=== PATIENT | male | born 1955 | race Caucasian/White ===

== ENCOUNTER 2018-11-05 15:43 | Emergency (ER) | payer MEDICARE | END 2018-11-05 16:25 | disposition home or self-care (01) | LOC: EDH 15:43 | DX: B35.3 Tinea pedis (principal); E78.5 Hyperlipidemia, unspecified; Z72.0 Tobacco use; Z85.038 Personal history of other malignant neoplasm of large intestine ==

== ENCOUNTER 2019-03-31 08:21 | Emergency (ER) | payer MEDICARE | END 2019-03-31 09:24 | disposition home or self-care (01) | LOC: EDH 08:21 | DX: H92.02 Otalgia, left ear (principal); I10 Essential (primary) hypertension; E78.5 Hyperlipidemia, unspecified; Z85.038 Personal history of other malignant neoplasm of large intestine; Z72.0 Tobacco use ==

== ENCOUNTER 2022-03-22 07:08 | Emergency (ER) | payer MEDICARE ==
[~2022-03-22] VITALS: Ht 172.7 cm; Wt 68.9 kg
[2022-03-22 07:13] VITALS: BP 166/97
[2022-03-22] MEDS ORDERED: CETI10TA57 PO (08:29)
[2022-03-22] MEDS ORDERED: FLUT16H NASAL (08:29)
== END 2022-03-22 08:47 | disposition home or self-care (01) ==
LOC: EDH 07:08
DX: J32.9 Chronic sinusitis, unspecified (principal); R03.0 Elevated blood-pressure reading, without diagnosis of hypertension; Z20.822 Contact with and (suspected) exposure to COVID-19; K21.9 Gastro-esophageal reflux disease without esophagitis; E78.00 Pure hypercholesterolemia, unspecified; Z59.00 Homelessness unspecified
CPT/HCPCS: 99283; 87635; 87804 ×2; C9803

== ENCOUNTER 2024-07-08 14:00 | Emergency (ER) | payer MEDICARE ==
[~2024-07-08] VITALS: Ht 172.7 cm; Wt 61.2 kg
[~2024-07-08 14:00] MED LIST: CETI10TA57 PO; FLUT16H NASAL
--- NOTE | 2024-07-08 14:36 | ERN ---
General Chief Complaint: Back Pain or Injury Stated Complaint: BACK PAIN Time Seen by MD: 14:08 History of Present Illness Initial Comments Mr. Denney is a 69-year-old male with past medical history of: Hypercholesteremia, hypertension, GERD came to ER with complaints of mid back pain post fall last week radiating to upper back, stabbing pain, that is worse when he stands up. He denies chest pain or shortness of breath or palpitations or dizziness or abdominal pain. He did not his hit his head when he fell, no LOC, not on blood thinners. Allergies: Coded Allergies: No Known Drug Allergies (Unverified Allergy, Unknown, 11/05/18) Home Meds Active Scripts Amoxicillin/Potassium Clav (Amox Tr-K Clv 875-125 mg Tab) 875 Mg-125 Mg Tablet, 1 TAB PO BID for 7 Days, #14 TAB 0 Refills Prov:NICHELLE GRUBER MD 07/08/24 Lidocaine (Lidocaine Pain Relief) 4 % Adh..patch, 1 PATCH TP DAILY for 10 Days, #10 PATCH 0 Refills Prov:NICHELLE GRUBER MD 07/08/24 Gabapentin (Gabapentin) 100 Mg Capsule, 100 MG PO TID for 10 Days, #30 CAP Prov:NICHELLE GRUBER MD 07/08/24 Hydrocodone/Acetaminophen (Hydrocodon-Acetaminophen 5-325) 5 Mg-325 Mg Tablet, 1 TAB PO QIDP PRN for pain for 5 Days, #20 TAB 0 Refills Prov:PADDY GALEANO DO 07/08/24 Fluticasone Propionate (Flonase Nasal [place]) 50 Mcg/[place], 1 SPRAY NASAL BID, #1 INHALER 0 Refills Prov:MICHELLE ADDISON MD 03/22/22 Cetirizine HCl (Cetirizine HCl) 10 Mg Tablet, 10 MG PO DAILY, #15 TAB 0 Refills Prov:MICHELLE ADDISON MD 03/22/22 Past Medical History Past Medical History: GERD, High Cholesterol, Hypertension Past Surgical History: None ROS Dictation Constitutional: No appetite loss, No fevers, chills , No night sweats, No weakness, fatigue Eye: No vision change, No redness, pain or discharge ENT: No hearing loss, ear pain or discharge, No nose bleeds, No sore throat, Neck: No swelling. pain or stiffness Respiratory: No cough, shortness of breath, wheezing Cardiovascular: No chest pain,, palpitations, dyspnea, No edema Gastrointestinal: No abdominal pain, No nausea, vomiting, No diarrhea, constipation Genitourinary: No painful urination, No blood in urine, No urinary incontinence, No frequency or urgency Musculoskeletal: Mid back pain, right upper back pain, stiffness in right shoulder, no swelling Neurological: No numbness, tingling, No weakness, tremors or seizures Physical Exam Physical Exam Dictation General: Alert & Oriented, No acute distress. EENT: No conjunctival redness or discharge noted Tympanic membranes are clear, Normal hearing, Oral mucosa is moist, No pharyngeal erythema, No nasal discharge, No oral lesions. Neck: Non-tender, No jugular vein distention, No lymphadenopathy, No thyromegaly, Supple. Respiratory: Lungs are clear to auscultation, Respirations are non-labored, Breath sounds are equal, No chest wall tenderness, _. Cardiovascular: Normal rate, Normal rhythm, No murmur, Good pulses equal in all extremities, Normal peripheral perfusion, No edema. Gastrointestinal: Soft, Non-tender, Non-distended, Normal bowel sounds, No organomegaly, _. Musculoskeletal: mild right upper back tenderness, Normal range of motion, Normal strength, No swelling, No deformity, Normal gait. Integumentary: Warm, Dry, [place], Intact, No pallor, No rash. Neurologic: Alert, Oriented x4, Normal sensory, No focal defects Psychiatric: Cooperative, Appropriate mood & affect, Normal judgement, Non- suicidal. Results EKG/XRAY/US/CT/MRI X-RAY Comment PATIENT: SARAH DENNEY MR#: [id number] : 1955 SEX: M AGE: 69 LOCATION: [facility] ORDER 144 STATUS: REG ER REPORT#: [id number] SERVICE 1440 REASON: fall ORDERING PHYSICIAN: NICHELLE GRUBER MD PROCEDURE: SHOL 2V RT - SHOULDER COMP 2+VWS RT SHOULDER COMP 2+VWS RT REASON: fall TECHNIQUE: 2 views were obtained. FINDINGS: There is no evidence of fracture or dislocation. There is no joint effusion. The soft tissues appear unremarkable. There is no evidence of a radiopaque foreign body. IMPRESSION: No acute findings. DICTATED BY: VA SU MD DATE: 07/08/24 1531 ELECTRONICALLY SIGNED BY: VA SU MD DATE: 07/08/[address] Scan Comment PATIENT: SARAH DENNEY MR#: [id number] : 1955 SEX: M AGE: 69 LOCATION: [facility] ORDER 27 STATUS: REG ER REPORT#: [id number] SERVICE 25 REASON: FALL ORDERING PHYSICIAN: NICHELLE GRUBER MD PROCEDURE: T SPINE WO - CT THORACIC SPINE W/O CONTRAST CT THORACIC SPINE W/O CONTRAST REASON: FALL COMPARISON: None TECHNIQUE: Axial images are obtained from lower cervical spine through the upper lumbar spine. Sagittal and coronal reconstruction images were then performed. FINDINGS: There is a vertebral plana of T9. There is vacuum disc phenomenon suggesting this is old. There is no retropulsed fragment. There is mild superior endplate compression deformity of T12 and moderate superior endplate compression deformity of L1, both indeterminate in age, no retropulsed fragment. Remaining thoracic vertebral bodies appear normal. The spinal canal appears widely patent throughout. Soft tissues appear unremarkable. IMPRESSION: 1. Vertebral plana at T9 which is probably old since there is vacuum disc phenomena. 2. Mild superior endplate compression of T12 and moderate superior plate compression of L1, indeterminate in age. 3. Spinal canal widely patent, there are no retropulsed fragments. DICTATED BY: VA SU MD DATE: 07/08/24 150 ELECTRONICALLY SIGNED BY: VA SU MD DATE: 07/08/24 150 PATIENT: SARAH DENNEY MR#: [id number] : 1955 SEX: M AGE: 69 LOCATION: [facility] ORDER 27 STATUS: REG ER [facility] REPORT#: [id number] SERVICE 25 REASON: FALL ORDERING PHYSICIAN: NICHELLE GRUBER MD PROCEDURE: L SPIN WO - CT LUMBAR SPINE W/O CONTRAST CT LUMBAR SPINE W/O CONTRAST REASON: FALL COMPARISON: None TECHNIQUE: Images are obtained from mid body T11 through the sacrum in the axial plane. Sagittal and coronal reconstruction images were performed. FINDINGS: There is mild superior endplate compression deformity of T12 with moderate superior endplate compression of L1. These are indeterminate in age. There are no retropulsed fragment. Lumbar vertebral bodies appear otherwise unremarkable. Interspace heights are preserved. Alignment is normal. Axial images show ligament flavum and facet hypertrophic changes. These result in mild spinal stenosis at the L4-5 level, AP diameter 6 to 7 mm. There is moderate to marked spinal stenosis at L3-4, on a degenerative basis, AP diameter 5 to 6 mm. Remaining interspaces are widely patent. There are no focal osseous lesions. IMPRESSION: 1. Compression deformity superior endplate of T12 and L1, indeterminate in age but no retropulsed fragment. 2. Ligamentum flavum and facet hypertrophic changes with bulging annulus causing moderate spinal stenosis at L3-4 and mild spinal stenosis at L4-5. DICTATED BY: VA SU MD DATE: 07/08/241512 ELECTRONICALLY SIGNED BY: VA SU MD DATE: 07/08/241517 [facility] The differential diagnosis entertained at this time includes: Muscle strain, rib fracture, rotator cuff tear, tendinitis A full comprehensive workup will be performed to identify the underlying problem. The patient will be monitored closely throughout the emergency department stay. The disposition will depend on the workup results and frequent re-evaluations MDM: Rationale: Tests considered and ordered secondary to shared decision making include: CBC, CMP, Urinalysis,, ECG and radiology Previous outside records reviewed: Old ER visits. Risk of complication and/or morbidity or mortality of patient management: None Medications-Per medication reconciliation Need for hospitalization: Patient does meet criteria for hospitalization. Need for emergency major/minor surgery: No There are no social concerns with this patient. Prescription drug management Prescriptions will include symptomatic care Patient's prior external medical records from other ER visits were reviewed by me as indicated. Prior testing and results from previous visits were reviewed. Prior tests were taken into account with medical decision making and resource utilization, independent historian/historians were used to obtain complete medical history. I independently interpreted the test that were performed, results were reviewed by me and considered findings on radiology if ordered. Medical management and examination interpretation discussions were had by me with other qualified healthcare professionals as indicated for the patient's care. ED Course Orders Procedure Category Date Status Time Ct Thoracic Spine W/O CT 07/08/24 Resulted Contrast 14:26 Ct Lumbar Spine W/O CT 07/08/24 Resulted Contrast 14:26 Ketorolac PHA 07/08/24 Complete Tromethamine 15mg/Ml 14:30 Orphenadrine Citrate PHA 07/08/24 Complete (Norflex) 14:30 Shoulder Comp 2+Vws Rt RAD 07/08/24 Resulted 14:40 Hydrocodone/Apap PHA 07/08/24 Complete 5/325 ([place] 5/325mg) 16:00 Current Medications Medications (Trade) Dose Ordered Sig/Lex Route PRN Reason Start Time Stop Time Status Last Admin Dose Admin Acetaminophen/ Hydrocodone Bitart (NORco 5/325MG) 1 tab ONCE ONCE PO 07/08/24 16:00 07/08/24 15:45 DC Ketorolac Tromethamine (toRADol) 15 mg ONCE ONCE IM 07/08/24 14:30 07/08/24 14:31 DC 07/08/24 14:51 Orphenadrine Citrate (Norflex) 60 mg ONCE ONCE IM 07/08/24 14:30 07/08/24 14:31 DC 07/08/24 14:50 Vital Signs Date Time Temp Pulse Resp B/P (MAP) Pulse Ox O2 Delivery O2 Flow Rate FiO2 07/08/24 14:43 98.1 83 18 152/78 98 Room Air* 0 21 07/08/24 14:12 98.1 3 20 166/90 99 Room Air DX & DISP Disposition: Discharge Departure Impression: Primary Impression: Compression fracture of spine Critical Time: 30 minutes Condition: Stable Scripts Amoxicillin/Potassium Clav (Amox Tr-K Clv 875-125 mg Tab) 875 Mg-125 Mg Tablet 1 TAB PO BID for 7 Days, #14 TAB 0 Refills Prov: NICHELLE GRUBER MD 07/08/24 Lidocaine (Lidocaine Pain Relief) 4 % Adh..patch 1 PATCH TP DAILY for 10 Days, #10 PATCH 0 Refills Prov: NICHELLE GRUBER MD 07/08/24 Gabapentin (Gabapentin) 100 Mg Capsule 100 MG PO TID for 10 Days, #30 CAP Prov: NICHELLE GRUBER MD 07/08/24 Hydrocodone/Acetaminophen (Hydrocodon-Acetaminophen 5-325) 5 Mg-325 Mg Tablet 1 TAB PO QIDP PRN for pain for 5 Days, #20 TAB 0 Refills Prov: PADDY GALEANO DO 07/08/24 Additional Instructions: Patient has been informed of all the diagnostic tests and the imaging conducted during the today's visit to the emergency room and has verbalized understanding of the results I have personally reviewed and interpreted all diagnostic exams performed here in the ER today as well as the vital signs documented by the nursing staff. The patient is now being discharged to home and should follow up with the primary care physician or the specialist as directed by the ER staff. Follow-up with primary care provider in 1 to 2 days. Take medications as directed here in the emergency room. Okay to continue home medications unless otherwise discussed during your visit in the emergency room today. Return to your nearest emergency room if symptoms worsen or if there is no improvement. C all 911 if you need immediate assistance. Take Tylenol or Motrin [id number] as needed and if no contraindications are present. Increase oral hydration. Referrals: SELF,REFERRAL (PCP) SIMRAN WALDROP MD ATTESTATION BY PHYSICIAN I have seen and examined the patient. I reviewed the documentation, medical decision making, and treatment plan as noted by the resident provider above. I agree with the findings and plan of care. Paddy Galeano NIHITHA MD Jul 08, 2024 14:35 PADDY GALEANO DO Jul 08, 2024 15:46
[2024-07-08] MEDS: ORPHENADRINE 60MG/2ML IM ONE (14:50)
[2024-07-08] MEDS: ketOROlac 15MG/ML VIAL (15MG/ML) IM ONE (14:51)
--- NOTE | 2024-07-08 15:06 | HMCIMG ---
CT THORACIC SPINE W/O CONTRAST REASON: FALL COMPARISON: None TECHNIQUE: Axial images are obtained from lower cervical spine through the upper lumbar spine. Sagittal and coronal reconstruction images were then performed. FINDINGS: There is a vertebral plana of T9. There is vacuum disc phenomenon suggesting this is old. There is no retropulsed fragment. There is mild superior endplate compression deformity of T12 and moderate superior endplate compression deformity of L1, both indeterminate in age, no retropulsed fragment. Remaining thoracic vertebral bodies appear normal. The spinal canal appears widely patent throughout. Soft tissues appear unremarkable. IMPRESSION: 1. Vertebral plana at T9 which is probably old since there is vacuum disc phenomena. 2. Mild superior endplate compression of T12 and moderate superior plate compression of L1, indeterminate in age. 3. Spinal canal widely patent, there are no retropulsed fragments.
--- NOTE | 2024-07-08 15:18 | HMCIMG ---
CT LUMBAR SPINE W/O CONTRAST REASON: FALL COMPARISON: None TECHNIQUE: Images are obtained from mid body T11 through the sacrum in the axial plane. Sagittal and coronal reconstruction images were performed. FINDINGS: There is mild superior endplate compression deformity of T12 with moderate superior endplate compression of L1. These are indeterminate in age. There are no retropulsed fragment. Lumbar vertebral bodies appear otherwise unremarkable. Interspace heights are preserved. Alignment is normal. Axial images show ligament flavum and facet hypertrophic changes. These result in mild spinal stenosis at the L4-5 level, AP diameter 6 to 7 mm. There is moderate to marked spinal stenosis at L3-4, on a degenerative basis, AP diameter 5 to 6 mm. Remaining interspaces are widely patent. There are no focal osseous lesions. IMPRESSION: 1. Compression deformity superior endplate of T12 and L1, indeterminate in age but no retropulsed fragment. 2. Ligamentum flavum and facet hypertrophic changes with bulging annulus causing moderate spinal stenosis at L3-4 and mild spinal stenosis at L4-5.
--- NOTE | 2024-07-08 15:35 | HMCIMG ---
SHOULDER COMP 2+VWS RT REASON: fall TECHNIQUE: 2 views were obtained. FINDINGS: There is no evidence of fracture or dislocation. There is no joint effusion. The soft tissues appear unremarkable. There is no evidence of a radiopaque foreign body. IMPRESSION: No acute findings.
[2024-07-08] MEDS ORDERED: HYDR-4060 PO (15:45)
[2024-07-08] MEDS ORDERED: AMOX1TAB16 PO (15:54)
[2024-07-08] MEDS ORDERED: GABA-529 PO (15:54)
[2024-07-08] MEDS ORDERED: LIDO1ADH71 TP (15:54)
[2024-07-08] MEDS ORDERED: HYDROcodone/APAP 5/325 1 TAB TABLET PO ONE (16:00)
[2024-07-08 16:07] VITALS: BP 143/75; PULSE 79; RESP 18; TEMP 98.1; O2SAT 99
== END 2024-07-08 16:10 | disposition home or self-care (01) ==
LOC: EDH 14:00
DX: S22.080A Wedge compression fracture of T11-T12 vertebra, initial encounter for closed fracture (principal); S32.010A Wedge compression fracture of first lumbar vertebra, initial encounter for closed fracture; E78.00 Pure hypercholesterolemia, unspecified; I10 Essential (primary) hypertension; K21.9 Gastro-esophageal reflux disease without esophagitis; Z79.899 Other long term (current) drug therapy; W18.39XA Other fall on same level, initial encounter; Y93.89 Activity, other specified; Y92.89 Other specified places as the place of occurrence of the external cause; Y99.8 Other external cause status
CPT/HCPCS: 99285; 72131; 73030; 72128; 96372 ×2; J1885; J2360

== ENCOUNTER 2024-07-21 10:41 | Emergency (ER) | payer MEDICARE ==
[~2024-07-21 10:41] MED LIST changes: +AMOX1TAB16 PO; +GABA-529 PO; +HYDR-4060 PO; +LIDO1ADH71 TP
[2024-07-21] MEDS ORDERED: morPHINE 4 MG SYG IVP ONE (12:00)
[2024-07-21] MEDS ORDERED: ondanSETRON 4MG INJ IVP ONE (12:00)
[2024-07-22] MEDS ORDERED: CEPH500B PO (09:13)
== END 2024-07-21 12:17 | disposition left against medical advice (07) ==
LOC: EDH 10:41
DX: M54.9 Dorsalgia, unspecified (principal); Z53.21 Procedure and treatment not carried out due to patient leaving prior to being seen by health care provider

== ENCOUNTER 2024-07-22 08:45 | Emergency (ER) | payer MEDICARE ==
[~2024-07-22] VITALS: Ht 172.7 cm; Wt 71.2 kg
[2024-07-22] MEDS ORDERED: CEPH500B PO (09:13)
--- NOTE | 2024-07-22 09:16 | ERN ---
General Chief Complaint: Back Injury Stated Complaint: BACK PAIN Time Seen by MD: 08:51 History of Present Illness Initial Comments 69-year-old male had a fall two or three weeks goes onto his bottom. He has a compression fracture T9. He was here, he received a [place] and pain control, I briefly resolve the pain but he ran out of medication. He did follow up with Dr. Corea as an outpatient, but Dr. Corea does not accept his insurance. He is requesting course of antibiotics since he occasionally gets kidney infections. He was requesting pain medicine and referrals to neurosurgery. Allergies: Coded Allergies: No Known Drug Allergies (Unverified Allergy, Unknown, 11/05/18) Home Meds Active Scripts Amoxicillin/Potassium Clav (Amox Tr-K Clv 875-125 mg Tab) 875 Mg-125 Mg Tablet, 1 TAB PO BID for 7 Days, #14 TAB 0 Refills Prov:NICHELLE GRUBER MD 07/08/24 Lidocaine (Lidocaine Pain Relief) 4 % Adh..patch, 1 PATCH TP DAILY for 10 Days, #10 PATCH 0 Refills Prov:NICHELLE GRUBER MD 07/08/24 Gabapentin (Gabapentin) 100 Mg Capsule, 100 MG PO TID for 10 Days, #30 CAP Prov:NICHELLE GRUBER MD 07/08/24 Hydrocodone/Acetaminophen (Hydrocodon-Acetaminophen 5-325) 5 Mg-325 Mg Tablet, 1 TAB PO QIDP PRN for pain for 5 Days, #20 TAB 0 Refills Prov:MAGDI COYLE DO 07/08/24 Fluticasone Propionate (Flonase Nasal [place]) 50 Mcg/[place], 1 SPRAY NASAL BID, #1 INHALER 0 Refills Prov:MICHELLE ADDISON MD 03/22/22 Cetirizine HCl (Cetirizine HCl) 10 Mg Tablet, 10 MG PO DAILY, #15 TAB 0 Refills Prov:MICHELLE ADDISON MD 03/22/22 Past Medical History Past Medical History: GERD, High Cholesterol, Hypertension Past Surgical History: None ROS Dictation CONSTITUTIONAL: No chills, no fever, no weakness, no diaphoresis, no malaise. HEAD/FACE: No signs of trauma. EENT: No eye pain, no blurred vision, no tearing, no double vision, no ear pain, no ear discharge, no nose pain, no nasal congestion, no throat pain, no throat swelling, no mouth pain. RESPIRATORY: No cough, no orthopnea, no SOB, no stridor, no wheezing. CARDIOVASCULAR: No chest pain, no edema, no palpitations, no syncope. GASTROINTESTINAL/ABDOMINAL: No abdominal pain, no constipation, no diarrhea, no nausea, no vomiting. GENITOURINARY: No abnormal discharge, no dysuria, no frequent urination, no hematuria. No complaints of pain in the genitals. MUSCULOSKELETAL: Back pain INTEGUMENTARY: No change in color, no change in hair/nails, no dryness, no lesion, no lumps, no rash. NEUROLOGICAL/PSYCH: No anxiety, not depressed, no emotional problem, no headache, no numbness, no pre-existing deficit, no history of seizures, no tremors, no weakness. HEMATOLOGIC/LYMPHATIC: Not anemic, no history of blood clots, no apparent bleeding, no bruising, glands not swollen. All Systems Negative, Except as Noted. Physical Exam Physical Exam Dictation VITAL SIGNS: Reviewed. GENERAL APPEARANCE: Alert, oriented x3, no acute distress HEAD AND FACE: Non-traumatic. EYES: PERRL, pink conjunctivas, eyelid no trauma, anterior chamber clear. EARS: Pinnas intact and no signs of trauma or erythema. Ear canals clear and no discharge. TMs no erythema. NOSE: No discharge, no bleeding. OROPHARYNX: Mouth normal, teeth no caries, tongue pink. Pharynx clear, no erythema. Tonsils no exudates, no abscesses noted. Mucous membrane moist. NECK: Supple, non-tender, no thyromegaly, no masses, no JVD, no bruits. BREAST: Deferred. CHEST: No tenderness, no crepitus, no paradoxical movement, no retractions. LUNGS: Clear, well-ventilated, symmetric, no rales, no wheezing, no rhonchi, no stridor, good breath sounds bilaterally. HEART: Regular rate, regular rhythm, no murmur, no gallops. VASCULAR: No peripheral edema. ABDOMEN: Soft, positive bowel sounds, nondistended, no guarding, nontender, no rebound, no masses no hepatomegaly, no splenomegaly, no Garza's sign, no hernias. RECTAL: Deferred. GENITAL: Deferred. NEUROLOGICAL: Normal speech, gross motor function intact, gross sensory function intact. MUSCULOSKELETAL: Neck nontender, full range of motion, back nontender, full range of motion. Midline back tenderness around T9 consistent with the injury EXTREMITIES: Nontender, full range of motion. SKIN: Color pink, dry, no turgor, no rash, no lacerations, no abrasions, no contusions. LYMPHATICS: Deferred. MDM CC: Mid back pain status post fall Historian: Patient Comorbidities: Known T9 compression fracture, gastritis Historian: Patient Limitations by social determinants of health: None Differential diagnosis: Pain due to compression fracture Vital signs stable No labs or imaging indicated Patient was no neurovascular deficit, he does have midline tenderness. I did review the imaging, there is a CT scan of the thorax done which shows a compression fracture less than 25%. He is neurovascularly intact, we will DC [facility] pain control and recommend neurosurgery follow up. We will give him referrals to different surgeons in the area. Patient was also requesting antibiotics because he thinks he may have a kidney infection, I will give him some Keflex. ED Course Orders Procedure Category Date Status Time Ketorolac 60mg/2ml PHA 07/22/24 In Process (Toradol 60mg/2ml) 09:30 Hydrocodone/Apap PHA 07/22/24 In Process 5/325 ([place] 5/325mg) 09:30 Current Medications Medications (Trade) Dose Ordered Sig/Lex Route PRN Reason Start Time Stop Time Status Last Admin Dose Admin Acetaminophen/ Hydrocodone Bitart ([place] 5/325MG) 1 tab ONCE ONCE PO 07/22/24 09:30 07/22/24 09:31 Ketorolac Tromethamine (toRADol 60MG/ 2ML) 15 mg ONCE ONCE IM 07/22/24 09:30 07/22/24 09:31 Vital Signs Date Time Temp Pulse Resp B/P (MAP) Pulse Ox O2 Delivery O2 Flow Rate FiO2 07/22/24 08:55 97.9 86 18 99 Room Air* 0 21 07/22/24 08:46 97.9 86 20 151/96 99 DX & DISP Disposition: Discharge Departure Impression: Primary Impression: Compression fracture of spine Condition: Stable Scripts Cephalexin Monohydrate (Keflex) 500 Mg Cap 1 CAP PO TID for 10 Days, #30 CAP 0 Refills Prov: MAGDI COYLE DO 07/22/24 Hydrocodone/Acetaminophen (Hydrocodon-Acetaminophen 5-325) 5 Mg-325 Mg Tablet 1 TAB PO QIDP PRN for pain for 5 Days, #30 TAB 0 Refills Prov: MAGDI COYLE DO 07/22/24 Additional Instructions: You have a compression fracture at T9. I have sent hydrocodone tabs to the pharmacy. You can take this up to 4 times a day as needed. I recommend you try an [id number] NSAIDs such as ibuprofen or naproxen. As we discussed, this may irritate your stomach. You can also try 4% lidocaine patches, Voltaren gel, or capsaicin gel. These are all [id number] medications. You will need to follow up with the neurosurgeon. I have provided a few referrals here. Please return to the emergency department if you have any concerns. Referrals: SELF,REFERRAL (PCP) FRANK MUJICA MD, MADHAVAN A MD STEPHENS, BRADLEY H MD WORTH, RYAN E DO Jul 22, 2024 09:16
[2024-07-22] MEDS: HYDROcodone/APAP 5/325 1 TAB TABLET PO ONE (09:19)
[2024-07-22] MEDS: ketOROlac 60 MG VIAL (30MG/ML) IM ONE (09:20)
[2024-07-22 09:43] VITALS: BP 145/90; PULSE 80; RESP 18; TEMP 97.9; O2SAT 99
== END 2024-07-22 09:39 | disposition home or self-care (01) ==
LOC: EDH 08:45
DX: S22.070A Wedge compression fracture of T9-T10 vertebra, initial encounter for closed fracture (principal); E78.00 Pure hypercholesterolemia, unspecified; I10 Essential (primary) hypertension; K21.9 Gastro-esophageal reflux disease without esophagitis; Z79.899 Other long term (current) drug therapy; W18.39XA Other fall on same level, initial encounter; Y93.89 Activity, other specified; Y92.89 Other specified places as the place of occurrence of the external cause; Y99.8 Other external cause status
CPT/HCPCS: 99283; 96372; J1885

== ENCOUNTER 2025-01-05 16:21 | Emergency (ER) | payer MEDICARE ==
[~2025-01-05] VITALS: Ht 160 cm; Wt 68.0 kg
[~2025-01-05 16:21] MED LIST changes: +CEPH500B PO; +OMEP20CA12 PO
[2025-01-05] MEDS ORDERED: PHARMACY COMMUNICATION MISC STA (17:09)
[2025-01-05] MEDS ORDERED: MAG/AL/SIMETH 30 ML+LIDO2% VISC+DIPHEN 75MG 30ML PO PRN (17:30)
[2025-01-05] MEDS ORDERED: COMPOUND PO MISCELLANEOUS 1 EACH MISC MISC PRN (17:30)
[2025-01-05 17:33] LABS: RAPID GROUP A STREP negative (NEGATIVE)
[2025-01-05 17:39] LABS: SARS-CoV-2, RNA, NAAT NEGATIVE SARS CoV-2 (NEGATIVE)
[2025-01-05 17:44] LABS: INFLUENZA TYPE A Negative For Type A (NEGATIVE); INFLUENZA TYPE B Negative For Type B (NEGATIVE)
[2025-01-05] MEDS ORDERED: OFLO5DRO AS (18:14)
[2025-01-05] MEDS ORDERED: MAGIC PO (18:14)
--- NOTE | 2025-01-05 18:14 | ERN ---
ED Note History of Present Illness Stated Complaint: SORE THROAT Chief Complaint: Sore Throat Time Seen by MD: 16:58 Time Seen by Midlevel: 17:02 Dictation: 69-year-old male complaining of left ear pain and mild pain. Patient states it has been going on for one week. Denies any fever, nausea or vomiting. Denies any chest pain or discomfort. Allergies: Coded Allergies: No Known Drug Allergies (Unverified Allergy, Unknown, 11/05/18) Home Meds Active Scripts Omeprazole (Omeprazole) 20 Mg Capsule.dr, 1 CAP PO DAILY for 30 Days, #30 CAP 0 Refills Prov:DORETHA JONES MD 08/06/24 Gabapentin (Gabapentin) 100 Mg Capsule, 1 CAP PO BID for 3 Days, #6 CAP 0 Refills Prov:DORETHA JONES MD 08/06/24 Cephalexin Monohydrate (Keflex) 500 Mg Cap, 1 CAP PO TID for 10 Days, #30 CAP 0 Refills Prov:MAGDI COYLE DO 07/22/24 Hydrocodone/Acetaminophen (Hydrocodon-Acetaminophen 5-325) 5 Mg-325 Mg Tablet, 1 TAB PO QIDP PRN for pain for 5 Days, #30 TAB 0 Refills Prov:MAGDI COYLE DO 07/22/24 Amoxicillin/Potassium Clav (Amox Tr-K Clv 875-125 mg Tab) 875 Mg-125 Mg Tablet, 1 TAB PO BID for 7 Days, #14 TAB 0 Refills Prov:NICHELLE GRUBER MD 07/08/24 Lidocaine (Lidocaine Pain Relief) 4 % Adh..patch, 1 PATCH TP DAILY for 10 Days, #10 PATCH 0 Refills Prov:NICHELLE GRUBER MD 07/08/24 Gabapentin (Gabapentin) 100 Mg Capsule, 100 MG PO TID for 10 Days, #30 CAP Prov:NICHELLE GRUBER MD 07/08/24 Hydrocodone/Acetaminophen (Hydrocodon-Acetaminophen 5-325) 5 Mg-325 Mg Tablet, 1 TAB PO QIDP PRN for pain for 5 Days, #20 TAB 0 Refills Prov:MAGDI COYLE DO 07/08/24 Fluticasone Propionate (Flonase Nasal [place]) 50 Mcg/[place], 1 SPRAY NASAL BID, #1 INHALER 0 Refills Prov:MICHELLE ADDISON MD 03/22/22 Cetirizine HCl (Cetirizine HCl) 10 Mg Tablet, 10 MG PO DAILY, #15 TAB 0 Refills Prov:MICHELLE ADDISON MD 03/22/22 Past Medical History Past Medical History: High Cholesterol, Hypertension Surgical History: None Review of System Dictation Constitutional: Negative for fever,chills, and weight loss Eyes: Negative for injury, pain,redness, and discharge ENT: Complaining of left ear pain and mouth Cardiovascular: Negative for chest pain, palpitations, and edema Respiratory: Negative for shortness of breath, cough, and wheezing, Abdomen/GI: Negative for abdominal pain, nausea, vomiting, diarrhea, and constipation Back: Negative for injury and pain : Negative for injury, bleeding and discharge MS/Extremity: Negative for injury and deformity Skin: Negative for rash, and discoloration Neuro: Negative for headache, weakness, numbness, tingling, and seizure Psych: Negative for suicide ideation, homicidal ideation, and hallucinations Review of Systems: was completed Initial Vital Sign VS Vital Signs Date Time Temp Pulse Resp B/P (MAP) Pulse Ox O2 Delivery O2 Flow Rate FiO2 01/05/25 16:51 97.3 20 18 125/79 98 Physical Exam Dictation General: awake, alert, NAD Head/Face: Normocephalic, atraumatic Eyes: PERRL, EOMI, vision at baseline ENT: No mild erythema noted in the left ear canal, no drainage. Mouth shows no thrush, ulcers, lesions Neck: Trachea midline, supple, no nuchal rigidity Cardiovascular: RRR, normal S1/S2, No MRGs, no JVD Respiratory: CTAB, no respiratory distress, No rales or wheezes Abdomen: Soft, non-tender, non-distended, normal bowel sounds, no guarding or rebound. Skin: Warm, dry, normal turgor, no rash MS/Extremity: Pulses equal, no cyanosis, neurovascular intact, FROM Neuro: COAx4, GCS 15, strength 5/5, CN 2-12 intact, normal cerebellar exam, normal gait, Psych: Normal behavior, mood, and affect normal Results (Laboratory/Radiology) Laboratory/Radiology Laboratory Tests Test 01/05/25 17:10 Influenza Type A Antigen Negative For Type A Influenza Type B Antigen Negative For Type B SARS-CoV-2, RNA, NAAT NEGATIVE SARS CoV-2 Group A Streptococcus Rapid negative (NEGATIVE) Labs Reviewed?: Yes ED Course ED Course Orders Procedure Category Date Status Time Rapid (Group A Strep) LAB 01/05/25 Complete 16:57 Covid Rna Naat LAB 01/05/25 Complete 16:57 Influenza Type A & B, LAB 01/05/25 Complete Rapid 16:57 Pharmacy PHA 01/05/25 Complete Communication 17:09 Mag/Alum/Simeth 30ml PHA 01/05/25 In Process (Maalox Plus 30ml) 17:30 Compound Po Misc PHA 01/05/25 In Process (Compound Po Misc) 17:30 Current Medications Medications (Trade) Dose Ordered Sig/Lex Route PRN Reason Start Time Stop Time Status Last Admin Dose Admin Al Hydroxide/Mg Hydroxide/ Lidocaine HCl/ Diphenhydramine HCl TAKE (5-10)ML SWISH ... Q6H PRN PO SORE THROAT 01/05/25 17:30 02/04/25 17:29 Pharmacy Profile Note (Pharmacy Communication) 1 each ONCE STAT MISC 01/05/25 17:09 01/05/25 17:16 DC Vital Signs Date Time Temp Pulse Resp B/P (MAP) Pulse Ox O2 Delivery O2 Flow Rate FiO2 01/05/25 16:51 97.3 20 18 125/79 98 Medical Decision Making MDM MDM: 69-year-old male complaining of left ear pain and mild pain. Patient states it has been going on for one week. Denies any fever, nausea or vomiting. Denies any chest pain or discomfort. Patient states he uses Listerine feet very frequent every day. Educated patient this is might be causing his mouth soreness because it contains alcohol and it can be very irritating to the skin. Educated to stop using that. We will give prescription for the left otitis externa him to follow up with PCP. Differential diagnosis: Otitis media, otitis externa, pharyngitis, thrush Rationale: Tests considered and ordered secondary to shared decision making include: Previous outside records reviewed: Old ER visits. Risk of complication and/or morbidity or mortality of patient management: None Medications-Per medication reconciliation Need for hospitalization: Patient does not meet criteria for hospitalization. Need for emergency major/minor surgery: No There are no social concerns with this patient. Prescription drug management Prescriptions will include symptomatic care Patient's prior external medical records from other ER visits were reviewed by me as indicated. Prior testing and results from previous visits were reviewed. Prior tests were taken into account with medical decision making and resource utilization, independent historian/historians were used to obtain complete medical history. I independently interpreted the test that were performed, results were reviewed by me and considered findings on radiology if ordered. Medical management and examination interpretation discussions were had by me with other qualified healthcare professionals as indicated for the patient's care. DX & DISP Disposition: Discharge Departure Impression: Primary Impression: Otitis externa Additional Impression: Acute pharyngitis Condition: Stable Scripts Lidocaine HCl (Magic Mouthwash [Maalox/Lidocaine/Nystatin]) 200 Mg-200 Mg-20 Mg/5 Ml Soln 15 ML PO TID for 5 Days, #355 ML 0 Refills Prov: RENUKA BUENO [place] SEWER 01/05/25 Ofloxacin (Ofloxacin) 0.3 % Drops 2 DROP BID for 7 Days, #5 ML 0 Refills Prov: RENUKA BUENO [place] SEWER 01/05/25 Additional Instructions: Please follow up with your PCP in 1-2 days. Referrals: NONE (PCP) Time of Disposition: 18:12 I have reviewed the case, and I agree with, Diagnosis and Plan RENUKA BUENO NP Jan 05, 2025 18:14
[2025-01-05 19:04] VITALS: BP 127/78; PULSE 98; RESP 18; TEMP 97.3; O2SAT 98
== END 2025-01-05 19:05 | disposition home or self-care (01) ==
LOC: EDH 16:21
DX: H60.92 Unspecified otitis externa, left ear (principal); J02.9 Acute pharyngitis, unspecified; E78.00 Pure hypercholesterolemia, unspecified; I10 Essential (primary) hypertension; Z79.899 Other long term (current) drug therapy; Z20.822 Contact with and (suspected) exposure to COVID-19
CPT/HCPCS: 87635; 87804; 87880; 99283

== ENCOUNTER 2025-03-04 12:24 | Emergency (ER) | payer MEDICARE ==
[~2025-03-04] VITALS: Ht 170.2 cm; Wt 77.1 kg
[~2025-03-04 12:24] MED LIST changes: +MAGIC PO; +OFLO5DRO AS
[2025-03-04 13:30] VITALS: BP 130/84; PULSE 80; RESP 16; TEMP 98; O2SAT 98
[2025-03-04] MEDS ORDERED: PRED20TA3 PO (13:43)
--- NOTE | 2025-03-04 13:43 | ERN ---
ED Note History of Present Illness Stated Complaint: RASH TO HANDS Chief Complaint: Skin Rash/Abscess Time Seen by MD: 13:18 Dictation: 70-year-old male presenting to the emergency department with redness to hands and forearms bilaterally over the past few weeks. Patient denies any other symptoms uterus pain or shortness a breath Allergies: Coded Allergies: No Known Drug Allergies (Unverified Allergy, Unknown, 11/05/18) Home Meds Active Scripts Lidocaine HCl (Magic Mouthwash [Maalox/Lidocaine/Nystatin]) 200 Mg-200 Mg-20 Mg/5 Ml Soln, 15 ML PO TID for 5 Days, #355 ML 0 Refills Prov:RENUKA BUENO [place] DOFFER 01/05/25 Ofloxacin (Ofloxacin) 0.3 % Drops, 2 DROP BID for 7 Days, #5 ML 0 Refills Prov:RENUKA BUENO [place] DOFFER 01/05/25 Omeprazole (Omeprazole) 20 Mg Capsule.dr, 1 CAP PO DAILY for 30 Days, #30 CAP 0 Refills Prov:DORETHA JONES MD 08/06/24 Gabapentin (Gabapentin) 100 Mg Capsule, 1 CAP PO BID for 3 Days, #6 CAP 0 Refills Prov:DORETHA JONES MD 08/06/24 Cephalexin Monohydrate (Keflex) 500 Mg Cap, 1 CAP PO TID for 10 Days, #30 CAP 0 Refills Prov:MAGDI COYLE DO 07/22/24 Hydrocodone/Acetaminophen (Hydrocodon-Acetaminophen 5-325) 5 Mg-325 Mg Tablet, 1 TAB PO QIDP PRN for pain for 5 Days, #30 TAB 0 Refills Prov:MAGDI COYLE DO 07/22/24 Amoxicillin/Potassium Clav (Amox Tr-K Clv 875-125 mg Tab) 875 Mg-125 Mg Tablet, 1 TAB PO BID for 7 Days, #14 TAB 0 Refills Prov:NICHELLE GRUBER MD 07/08/24 Lidocaine (Lidocaine Pain Relief) 4 % Adh..patch, 1 PATCH TP DAILY for 10 Days, #10 PATCH 0 Refills Prov:NICHELLE GRUBER MD 07/08/24 Gabapentin (Gabapentin) 100 Mg Capsule, 100 MG PO TID for 10 Days, #30 CAP Prov:NICHELLE GRUBER MD 07/08/24 Hydrocodone/Acetaminophen (Hydrocodon-Acetaminophen 5-325) 5 Mg-325 Mg Tablet, 1 TAB PO QIDP PRN for pain for 5 Days, #20 TAB 0 Refills Prov:MAGDI COYLE DO 07/08/24 Fluticasone Propionate (Flonase Nasal [place]) 50 Mcg/[place], 1 SPRAY NASAL BID, #1 INHALER 0 Refills Prov:MICHELLE ADDISON MD 03/22/22 Cetirizine HCl (Cetirizine HCl) 10 Mg Tablet, 10 MG PO DAILY, #15 TAB 0 Refills Prov:MICHELLE ADDISON MD 03/22/22 Past Medical History Past Medical History: High Cholesterol, Hypertension Surgical History: None Review of System Dictation Constitutional: Negative for fever,chills, and weight loss Eyes: Negative for injury, pain,redness, and discharge ENT: Negative for injury,pain or swelling Cardiovascular: Negative for chest pain, palpitations, and edema Respiratory: Negative for shortness of breath, cough, and wheezing, Abdomen/GI: Negative for abdominal pain, nausea, vomiting, diarrhea, and constipation Back: Negative for injury and pain : Negative for injury, bleeding and discharge MS/Extremity: Negative for injury and deformity Skin: Per HPI Neuro: Negative for headache, weakness, numbness, tingling, and seizure Psych: Negative for suicide ideation, homicidal ideation, and hallucinations Initial Vital Sign VS Vital Signs Date Time Temp Pulse Resp B/P (MAP) Pulse Ox O2 Delivery O2 Flow Rate FiO2 03/04/25 12:25 98.1 82 16 132/90 98 Room Air 03/04/25 13:30 0 21 Physical Exam Dictation General: awake, alert, NAD Head/Face: Normocephalic, atraumatic Eyes: PERRL, EOMI, vision at baseline ENT: oral cavity clear, TMs clear, no signs of infection Neck: Trachea midline, supple, no nuchal rigidity Cardiovascular: RRR, normal S1/S2, No MRGs, no JVD Respiratory: CTAB, no respiratory distress, No rales or wheezes Abdomen: Soft, non-tender, non-distended, normal bowel sounds, no guarding or rebound. Skin: Warm, dry, normal turgor, erythema to hands bilaterally MS/Extremity: Pulses equal, no cyanosis, neurovascular intact, FROM Neuro: COAx4, GCS 15, strength 5/5, CN 2-12 intact, normal cerebellar exam, normal gait, Psych: Normal behavior, mood, and affect normal ED Course ED Course Vital Signs Date Time Temp Pulse Resp B/P (MAP) Pulse Ox O2 Delivery O2 Flow Rate FiO2 03/04/25 13:30 98.1 80 16 130/84 98 Room Air* 0 21 03/04/25 12:25 98.1 82 16 132/90 98 Room Air Medical Decision Making MDM MDM: Differential diagnosis: Rationale: Tests considered and ordered secondary to shared decision making in clude: Previous outside records reviewed: Old ER visits. Risk of complication and/or morbidity or mortality of patient management: None Medications-Per medication reconciliation Need for hospitalization: Patient does not meet criteria for hospitalization. Need for emergency major/minor surgery: No There are no social concerns with this patient. Prescription drug management Prescriptions will include symptomatic care Patient's prior external medical records from other ER visits were reviewed by me as indicated. Prior testing and results from previous visits were reviewed. Prior tests were taken into account with medical decision making and resource utilization, independent historian/historians were used to obtain complete medical history. I independently interpreted the test that were performed, results were reviewed by me and considered findings on radiology if ordered. Medical management and examination interpretation discussions were had by me with other qualified healthcare professionals as indicated for the patient's care. Local erythema prescriptions given DX & DISP Disposition: Discharge Departure Impression: Primary Impression: Rash of both hands Condition: Stable Scripts Prednisone (Prednisone) 20 Mg Tablet 1 TAB PO BID for 5 Days, #10 TAB 0 Refills Prov: LYLE LYLES MD 03/04/25 Referrals: NONE (PCP) LYLE LYLES MD Mar 04, 2025 13:43
== END 2025-03-04 14:10 | disposition home or self-care (01) ==
LOC: EDH 12:24
DX: R21 Rash and other nonspecific skin eruption (principal); E78.00 Pure hypercholesterolemia, unspecified; I10 Essential (primary) hypertension; Z79.899 Other long term (current) drug therapy
CPT/HCPCS: 99283